=== PATIENT | female | born 1990 | race Caucasian/White ===

== ENCOUNTER 2025-05-07 17:40 | Emergency (ER) | payer MEDICAID ==
[~2025-05-07] VITALS: Ht 165.1 cm; Wt 63.6 kg
[~2025-05-07 17:40] MED LIST: PREN1TAB52
[2025-05-07 17:50] VITALS: TEMP 97.8
[2025-05-07] MEDS: BACITRACIN 0.9 GM PACKET OINTMENT TP ONE (18:51)
[2025-05-07] MEDS: IBUPROFEN 600 MG TABLET PO ONE (18:51)
[2025-05-07] MEDS: ACETAMINOPHEN 500 MG TABLET PO ONE (18:51)
[2025-05-07] MEDS: PERTUSS(ACELL),DIPH,TET/PF 0.5 ML SYRINGE [ADULT] IM. ONE (18:52)
[2025-05-07 21:00] VITALS: BP 123/84; PULSE 85; RESP 14; O2SAT 99
[2025-05-07] MEDS ORDERED: ACET-66 PO (21:35)
[2025-05-07] MEDS ORDERED: IBUP-1554 PO (21:35)
[2025-05-07] MEDS ORDERED: BACI28.410 TP (21:35)
== END 2025-05-07 22:00 | disposition home or self-care (01) ==
LOC: EMS 17:40
DX: S00.03XA Contusion of scalp, initial encounter (principal); S60.222A Contusion of left hand, initial encounter; S83.91XA Sprain of unspecified site of right knee, initial encounter; Y35.819A Legal intervention involving manhandling, unspecified person injured, initial encounter; Y93.89 Activity, other specified; Y92.89 Other specified places as the place of occurrence of the external cause; Y99.8 Other external cause status
CPT/HCPCS: 70450; 84703; 90471; 90715; 99285